=== PATIENT | male | born 1970 | race Caucasian/White ===

== ENCOUNTER 2016-07-03 17:24 | Emergency (ER) | payer OTHER ==
[~2016-07-03] VITALS: Ht 182.9 cm; Wt 122.7 kg
[2016-07-03 17:28] VITALS: TEMP 97.9
[2016-07-03] MEDS ORDERED: 00186-0372-20 IH (17:34)
[2016-07-03] MEDS ORDERED: CLARITIN D TAB1 TAB PO (17:34)
[2016-07-03 19:01] VITALS: BP 145/94
[2016-07-03 19:54] VITALS: PULSE 86
== END 2016-07-03 19:54 | disposition home or self-care (01) ==
LOC: COL.ER 17:24
DX: S09.90XA Unspecified injury of head, initial encounter (principal); S16.1XXA Strain of muscle, fascia and tendon at neck level, initial encounter; V43.52XA Car driver injured in collision with other type car in traffic accident, initial encounter; Y92.410 Unspecified street and highway as the place of occurrence of the external cause; R40.2362 Coma scale, best motor response, obeys commands, at arrival to emergency department; R40.2142 Coma scale, eyes open, spontaneous, at arrival to emergency department; R40.2252 Coma scale, best verbal response, oriented, at arrival to emergency department

== ENCOUNTER 2019-12-29 14:43 | Outpatient (RCR) | payer OTHER ==
[~2019-12-29 14:43] MED LIST: 00186-0372-20 IH; CLARITIN D TAB1 TAB PO
== END 2020-01-19 10:18 | disposition home or self-care (01) ==
LOC: WSC 14:43
DX: J45.909 Unspecified asthma, uncomplicated (principal); M54.5 Low back pain; Z87.891 Personal history of nicotine dependence; Y99.0 Civilian activity done for income or pay

== ENCOUNTER → 2020-03-30 | Outpatient (CLI) | payer BC ==
[2020-03-30 14:52] LABS: HEMATOCRIT 45.8 % (42.0-52.0); HEMOGLOBIN 15.4 g/dl (13.5-18.0); MEAN CELL VOLUME 87 fl (80.0-100.0); MEAN CORPUSCULAR HEMOGLOBIN 29 pg (27.0-31.0); MEAN CORPUSCULAR HGB CONC 34 g/dl (33.0-37.0); PLATELET COUNT 281 K/mm3 (130-400); RED BLOOD COUNT 5.27 M/mm3 (4.20-5.60); REDCELL DISTRIBUTION WIDTH-CV 12.3 % (11.5-14.5)
[2020-03-30 15:02] LABS: ALBUMIN 4.8 gm/dL (3.5-5.0); BILIRUBIN,TOTAL 0.6 mg/dL (0.0-1.0); CALCIUM 9.4 mg/dL (8.4-10.2); CREATININE, serum 1.01 (0.66-1.25); POTASSIUM 4.4 mmol/L (3.4-5.0); TOTAL PROTEIN 8.1 gm/dL (6.4-8.2)
== END ==
LOC: COL.LAB 14:26 → COL.RAD 14:26
PROVIDERS: Family Medicine
DX: K42.9 Umbilical hernia without obstruction or gangrene (principal)
CPT/HCPCS: Q9967

== ENCOUNTER 2020-05-02 06:21 | Day surgery (SDC) | payer BC ==
[~2020-05-02] VITALS: Ht 182.9 cm; Wt 127.5 kg
[2020-05-02] MEDS ORDERED: ZYRTEC 10MG10 MG PO (06:56)
[2020-05-02] MEDS ORDERED: SINGULAIR 110 MG/TAB PO (06:57)
[2020-05-02] MEDS ORDERED: 00186-0370-20 IH (06:57)
[2020-05-02] MEDS ORDERED: ELDERBERRY EXTRACT PO (06:58)
[2020-05-02] MEDS ORDERED: BEET JUICE PO (07:00)
[2020-05-02 07:01] VITALS: BP 128/82; PULSE 78; TEMP 97.8
[2020-05-02] MEDS ORDERED: ULTRAM 50MG TAB50 MG PO (10:51)
[2020-05-02 11:01] VITALS: TEMP 98
[2020-05-02 11:25] VITALS: BP 136/95; PULSE 76
--- NOTE | 2020-05-02 11:25 | NUR ---
Returns to room 7 per cart accompanied by [place] and is awake and alert. Temp 98.0 and room air sats 95%. Incisions sites x3 dry and covered with Exofen. IV fluids infusing and site free of redness.
--- NOTE | 2020-05-02 11:30 | NUR ---
Returns to room after voiding and tolerated the procedure well.
[2020-05-02 11:40] VITALS: BP 135/92; PULSE 66
--- NOTE | 2020-05-02 11:40 | NUR ---
Sipping on Sprite. Denies need for pain medication. IV fluids continue to infuse.
[2020-05-02 11:55] VITALS: BP 138/91; PULSE 77
--- NOTE | 2020-05-02 11:55 | NUR ---
Continues to rest and sipping on Sprite.
--- NOTE | 2020-05-02 11:55 | NUR ---
Resting and offers no complaints of pain or nausea.
[2020-05-02 12:10] VITALS: BP 136/95; PULSE 71
--- NOTE | 2020-05-02 12:50 | NUR ---
IV discontinued and site is free of redness. Tolerated toast and applesauce. VS 130/80, 71, 14, 98%. Patient dressed self. Dismissal instructions given and voices understanding of these.
--- NOTE | 2020-05-02 12:55 | NUR ---
Dressed and ready for discharge.
--- NOTE | 2020-05-02 13:00 | NUR ---
Instructions signed and ready for discharge. Patient dismissed to home driven by mother and taken to the front door per wheelchair and assisted into vehicle with instruction in hand.
== END 2020-05-02 13:00 | disposition home or self-care (01) ==
LOC: SDCO 06:21
DX: K42.9 Umbilical hernia without obstruction or gangrene (principal); J45.909 Unspecified asthma, uncomplicated; F17.220 Nicotine dependence, chewing tobacco, uncomplicated; G47.33 Obstructive sleep apnea (adult) (pediatric)
CPT/HCPCS: C1781; J1885; J2405; J2704; J3010; J7120